=== PATIENT | male | born 1985 | race Two or more races ===

== ENCOUNTER 2021-10-07 16:40 | Inpatient (IN) | payer OTHER ==
[~2021-10-07] VITALS: Ht 180.3 cm; Wt 101.6 kg
[2021-10-07] MEDS ORDERED: AMLODIPINE-OLM1 EAC2 (17:09)
[2021-10-07] MEDS ORDERED: INDAPAMIDE1.25 MG (17:10)
[2021-10-07] MEDS ORDERED: LISINOPRIL10 MG (17:10)
== END 2021-10-10 16:34 | disposition home or self-care (01) | DRG 310 ==
LOC: ER 16:40 → MEDJ 10-08 00:41
PROVIDERS: ADMIT Internal Medicine; ATTEND Internal Medicine
PROC: B24BZZZ Ultrasonography of Heart with Aorta (ICD-10-PCS; principal; 2021-10-08)
PROC: 4A12X4Z Monitoring of Cardiac Electrical Activity, External Approach (ICD-10-PCS; 2021-10-08)
DX: I48.91 Unspecified atrial fibrillation (principal); I10 Essential (primary) hypertension; Z79.01 Long term (current) use of anticoagulants